=== PATIENT | male | born 1955 | race Caucasian/White ===

== ENCOUNTER 2021-08-19 13:10 | Outpatient (CLI) | payer OTHER ==
[2021-08-19 14:22] LABS: Bilirubin Neg (Negative); Blood, Urine Negative (Negative); Clarity Clear (Clear); Glucose, Urine (Dipstick) Normal (Negative); Ketone, Urine Negative (Negative); Leukocyte Negative (Negative); Nitrite Negative (Negative); Protein, Urine (Dipstick) Negative (Neg-Trace); Urobilinogen Normal mg/dL (Less than 2)
[2021-08-19 14:31] LABS: PTT 27.3 sec (22.0-33.0); Prothrombin Time 10.6 sec (9.5-12.1)
[2021-08-19 14:35] LABS: Bacteria/HPF None Seen HPF (None Seen); RBC/HPF None Seen HPF (0-3); Squamous Epithelial 0-3 HPF (0-3); WBC/HPF 0-3 HPF (0-3)
[2021-08-19 15:37] LABS: Hemoglobin 15.9 g/dL (13.5-17.5); Mean Corpuscular HGB CONC 33.8 g/dL (32.0-36.0); Mean Corpuscular Hemoglobin 31.3 pg (27.0-33.0); Mean Corpuscular Volume 92.7 fl (81.2-95.1); Mean Platelet Volume 10.4 fl (7.4-10.4); Platelet Count 260 10x3/uL (150-450); RBC Distribution Width 13.1 % (11.5-14.5); Red Blood Cell (RBC) Count 5.08 10x6/uL (4.32-5.72); White Blood Cell (WBC) Count 8.1 10x3/uL (3.5-10.5)
[2021-08-19 23:17] LABS: SARS-CoV-2 PCR by NAA Not Detected (NotDetected)
== END 2021-08-19 13:11 | disposition home or self-care (01) ==
LOC: LABBT 13:10
PROVIDERS: ATTEND Urology
DX: Z01.818 Encounter for other preprocedural examination (principal); N39.3 Stress incontinence (female) (male); Z20.822 Contact with and (suspected) exposure to COVID-19
CPT/HCPCS: 81001; 85027; 85610; 85730; 87077; 87086; 87186; 93005; 93010; U0003; U0005

== ENCOUNTER 2021-08-24 06:06 | Day surgery (SDC) | payer OTHER ==
[2021-08-19 13:40] VITALS: BMI 28.1
[2021-08-24] MEDS ORDERED: Bupivacaine 0.25% 10 ML VIAL ONE (06:35)
[2021-08-24] MEDS ORDERED: Midazolam HCl 2 mg/2 ml Vial ONE (06:53)
[2021-08-24] MEDS ORDERED: fentaNYL Citrate/PF 100 MCG/2 ML SYRINGE ONE (06:53)
[2021-08-24] MEDS ORDERED: Famotidine/PF 20 mg/2ml Vial ONE (06:54)
[2021-08-24] MEDS ORDERED: ceFAZolin (BATCH) 2 GM/100 ML BAG ONE (07:16)
[2021-08-24] MEDS ORDERED: Ondansetron PF 4 MG/2 ML Vial ONE (07:27)
[2021-08-24] MEDS ORDERED: ePHEDrine 50 MG/ML VIAL ONE (07:27)
[2021-08-24] MEDS ORDERED: PROPOFOL 200 MG/20 ML VIAL ONE (07:27)
[2021-08-24] MEDS ORDERED: Lidocaine 1% PF 5 ML VIAL ONE (07:27)
[2021-08-24] MEDS ORDERED: Dexamethasone 20 MG/5 ML VIAL ONE (07:27)
[2021-08-24] MEDS ORDERED: Neomycin-Polymyxin 1 ML AMP ONE (07:32)
== END 2021-08-24 11:23 | disposition home or self-care (01) ==
LOC: SDC 06:06
PROVIDERS: ATTEND Urology
PROC: 0TSD0ZZ Reposition Urethra, Open Approach (ICD-10-PCS; principal; 2021-08-24)
DX: N39.3 Stress incontinence (female) (male) (principal); M19.90 Unspecified osteoarthritis, unspecified site; J45.909 Unspecified asthma, uncomplicated; I10 Essential (primary) hypertension; Z79.899 Other long term (current) drug therapy; Z90.79 Acquired absence of other genital organ(s)
CPT/HCPCS: C1771; J0690; J1100; J2250; J2405; J2704; J3490; S0020; S0028